=== PATIENT | female | born 2000 | race Caucasian/White ===

== ENCOUNTER 2019-04-22 15:18 | Emergency (ER) | payer OTHER ==
[~2019-04-22] VITALS: Ht 175.3 cm; Wt 83.6 kg
[2019-04-22 15:23] VITALS: TEMP 99.4
[2019-04-22] MEDS ORDERED: ZANTAC 150MG T150 MG PO (15:28)
[2019-04-22] MEDS ORDERED: BENADRYL50 MG PO (15:28)
[2019-04-22] MEDS ORDERED: CYMBALTA 30MG30 MG PO (15:28)
[2019-04-22] MEDS ORDERED: PREDNISONE20 MG PO (17:24)
[2019-04-22 17:40] VITALS: BP 122/80; PULSE 78
== END 2019-04-22 17:42 | disposition home or self-care (01) ==
LOC: COL.ER 15:18
DX: L50.9 Urticaria, unspecified (principal); Z90.49 Acquired absence of other specified parts of digestive tract
CPT/HCPCS: J1200; J2930; J7030